=== PATIENT | male | born 1995 | race Caucasian/White ===

== ENCOUNTER 2017-02-25 22:03 | Emergency (ER) | payer OTHER ==
[~2017-02-25] VITALS: Ht 175.3 cm; Wt 79.5 kg
[2017-02-25 22:03] VITALS: TEMP 97
[2017-02-25 22:31] LABS: HEMOGLOBIN 15.2 g/dl (13.5-18.0); MEAN CELL VOLUME 85 fl (80.0-100.0); MEAN CORPUSCULAR HEMOGLOBIN 30 pg (27.0-31.0); MEAN CORPUSCULAR HGB CONC 35 g/dl (33.0-37.0); MEAN PLATELET VOLUME 9.4 fl (7.4-10.4); PLATELET COUNT 302 K/mm3 (130-400); RED BLOOD COUNT 5.06 M/mm3 (4.20-5.60); WHITE BLOOD COUNT 13.5 K/mm3 (4.8-10.8)
[2017-02-25 22:35] LABS: ADD PATHOLOGY DIFF REVIEW NO
[2017-02-25 22:43] LABS: ADJUSTED CALCIUM 8.3 mg/dL (8.4-10.2); BILIRUBIN,TOTAL 0.7 mg/dL (0.0-1.0); CALCIUM 9.1 mg/dL (8.4-10.2); CREATININE, serum 0.92 mg/dL (0.66-1.25); TOTAL PROTEIN 7.6 gm/dL (6.4-8.2)
[2017-02-25 22:45] LABS: POTASSIUM 2.7 mmol/L (3.4-5.0)
[2017-02-25] MEDS ORDERED: K-DUR20 MEQ PO (22:58)
[2017-02-25 23:31] LABS: NEUTROPHILS 42 % (42.0-75.2); ROULEAUX 1+; TOTAL CELLS COUNTED 100; TOXIC GRANULATION PRESENT
[2017-02-25 23:32] LABS: LYMPHOCYTE 50 % (20.0-51.0)
[2017-02-26 03:23] VITALS: BP 114/78; PULSE 60
== END 2017-02-26 03:25 | disposition home or self-care (01) ==
LOC: COL.ER 22:03
PROVIDERS: Emergency Medicine
DX: F10.129 Alcohol abuse with intoxication, unspecified (principal); E87.6 Hypokalemia; Y90.7 Blood alcohol level of 200-239 mg/100 ml
CPT/HCPCS: J2405; J3480; J7030